=== PATIENT | female | born 1960 | race African-American/Black ===

== ENCOUNTER 2022-03-15 20:31 | Inpatient (IN) | payer MEDICARE, MEDICAID ==
[~2022-03-15] VITALS: Ht 165.1 cm; Wt 58.7 kg
[2022-03-16 00:20] LABS: BASOPHILS % 1.3 % (0.0-2.0); EOSINOPHILS % 2.3 % (0.0-5.0); LYMPHOCYTES % 22.8 % (20.0-50.0); MEAN CORPUSCULAR HEMOGLOBIN 32.2 pg (28.0-32.0); MEAN CORPUSCULAR VOLUME 103.9 fL (81.0-99.0); MONOCYTES % 7.8 % (2.0-8.0); NEUTROPHILS % 65.8 % (40.0-76.0); PLATELET 390 x1000/uL (130-400); RED BLOOD CELL COUNT 1.93 mill/uL (4.2-5.4); RED CELL DISTRIBUTION WIDTH 17.9 % (11.6-14.6)
[2022-03-16 00:22] LABS: HEMATOCRIT. 20.1 % (36.0-48.0); HEMOGLOBIN. 6.2 g/dL (12.0-16.0)
[2022-03-16 00:33] LABS: CHLORIDE 105 mEq/L (98-107)
[2022-03-16] MEDS ORDERED: IRON SUCROSE COMPLEX 100 MG/5 ML ML IV SCH (05:00)
[2022-03-16] MEDS ORDERED: SODIUM CHLORIDE 0.9% 500 ML IV SCH (05:00)
[2022-03-16] MEDS ORDERED: EPOETIN ALFA-EPBX 10,000 UNIT/ML VIAL SUBCUT SCH ×2 (05:00→21:00)
[2022-03-16] MEDS ORDERED: SODIUM CHLORIDE 0.9% 500 ML IV PRN (06:00)
[2022-03-16 06:11] LABS: PHOSPHORUS 5.4 mg/dL (2.5-4.9)
[2022-03-16 06:34] LABS: HEPATITIS B SURFACE ANTIGEN NEGATIVE
[2022-03-16] MEDS ORDERED: MORPHINE SULFATE 2 MG/ML CPJ (NOT FOR IM USE) IV PRN (08:45)
[2022-03-16] MEDS ORDERED: DOCUSATE SODIUM 100MG CAPSULE PO PRN (08:45)
[2022-03-16] MEDS ORDERED: IPRATROPIUM/ALBUTEROL 0.5-3(2.5)MG/3ML NEB NEB PRN (08:45)
[2022-03-16] MEDS ORDERED: HYDROCODONE/ACETAMINOPHEN 5/325MG TABLET PO PRN (08:45)
[2022-03-16] MEDS ORDERED: ACETAMINOPHEN 325MG TABLET PO PRN (08:45)
[2022-03-16] MEDS ORDERED: NA PHOS,M-B/NA PHOS,DI-BA ENEMA 118ML PR PRN (08:45)
[2022-03-16] MEDS ORDERED: MAGNESIUM/ALUMINUM HYDROXIDE/SIMETHICONE 30ML UDC PO PRN (08:45)
[2022-03-16] MEDS ORDERED: CLONIDINE 0.1MG TABLET PO PRN (08:45)
[2022-03-16] MEDS ORDERED: ONDANSETRON HCL 4MG/2ML INJ IV PRN (08:45)
[2022-03-16] MEDS ORDERED: GUAIFENESIN 200MG/10ML SUGAR FREE UDC PO PRN (08:45)
[2022-03-16] MEDS ORDERED: DIPHENHYDRAMINE 50MG/ML VIAL IV PRN (08:45)
[2022-03-16] MEDS ORDERED: NALOXONE HCL 0.4MG/ML VIAL IV PRN (09:00)
[2022-03-16] MEDS: CALCIUM ACETATE 667MG CAPSULE PO SCH ×2 (09:50→15:03)
[2022-03-16 11:35] VITALS: BP 107/74
[2022-03-16 12:58] LABS: HEMATOCRIT 22.8 % (36.0-48.0); HEMOGLOBIN 7.4 g/dL (12.0-16.0); MEAN CORPUSCULAR HEMOGLOBIN 32.3 pg (28.0-32.0); MEAN CORPUSCULAR VOLUME 99.9 fL (81.0-99.0); PLATELET 348 x1000/uL (130-400); RED BLOOD CELL COUNT 2.29 mill/uL (4.2-5.4); RED CELL DISTRIBUTION WIDTH 17.7 % (11.6-14.6)
[2022-03-16] MEDS ORDERED: LISI40TA13 PO (15:18)
[2022-03-16] MEDS ORDERED: CALC667C MT (15:18)
[2022-03-17] MEDS ORDERED: EPOETIN ALFA-EPBX 10,000 UNIT/ML VIAL SUBCUT SCH (21:00)
== END 2022-03-16 15:40 | disposition left against medical advice (07) | DRG 682 ==
LOC: ER 20:31 → EDBEDREQSVC 03-16 10:03 → ENRESERV 03-16 10:05 → 7WST 03-16 11:38
PROVIDERS: ADMIT Internal Medicine; ATTEND Internal Medicine
PROC: 5A1D70Z Performance of Urinary Filtration, Intermittent, Less than 6 Hours Per Day (ICD-10-PCS; principal; 2022-03-16)
PROC: 30233N1 Transfusion of Nonautologous Red Blood Cells into Peripheral Vein, Percutaneous Approach (ICD-10-PCS; 2022-03-16)
DX: I12.0 Hypertensive chronic kidney disease with stage 5 chronic kidney disease or end stage renal disease (principal); E43 Unspecified severe protein-calorie malnutrition; N18.6 End stage renal disease; D63.1 Anemia in chronic kidney disease; E83.51 Hypocalcemia; E83.39 Other disorders of phosphorus metabolism; Z68.21 Body mass index [BMI] 21.0-21.9, adult; Z99.2 Dependence on renal dialysis
CPT/HCPCS: 36415; 80053; 83540; 83550; 84100; 84484; 85025; 85027; 86705; 86709; 86803; 86850; 86900; 86920; 87340; 93005; 99291; P9016

== ENCOUNTER 2024-05-11 21:02 | Inpatient (IN) | payer OTHER, MEDICAID, MEDICARE ==
[~2024-05-11] VITALS: Ht 167.6 cm; Wt 50.4 kg
[~2024-05-11 21:02] MED LIST: CALC667C MT; LISI40TA13 PO
[2024-05-11 22:26] LABS: BASOPHILS % 0.5 % (0.0-2.0); DIFFERENTIAL COMMENT 0; HEMATOCRIT. 37.1 % (36.0-48.0); HEMOGLOBIN. 11.8 g/dL (12.0-16.0); LYMPHOCYTES % 17.8 % (20.0-50.0); MEAN CORPUSCULAR HEMOGLOBIN 32.7 pg (28.0-32.0); MEAN CORPUSCULAR HGB CONC 31.8 g/dL (31.0-37.0); MEAN CORPUSCULAR VOLUME 102.9 fL (81.0-99.0); MEAN PLATELET VOLUME 8.5 fl (7.4-10.4); MONOCYTES % 5.9 % (2.0-8.0); NEUTROPHILS % 67.8 % (40.0-76.0); PLATELET 189 x1000/uL (130-400); RED CELL DISTRIBUTION WIDTH 16.5 % (11.6-14.6); WHITE BLOOD COUNT 7.5 x1000/uL (4.5-11.0)
[2024-05-11 22:32] LABS: CHLORIDE 109 mEq/L (98-107); POTASSIUM 5.6 mEq/L (3.5-5.1); SODIUM 140 mEq/L (136-145)
[2024-05-11] MEDS: NITROGLYCERIN OINT 1GM/INCH UDPKT TD ONE (22:32)
[2024-05-11 22:33] LABS: CALCIUM 7.9 mg/dL (8.7-10.4); CARBON DIOXIDE 13 mEq/L (21-32)
[2024-05-11 22:37] LABS: INR 1.1; PROTHROMBIN TIME 12.5 sec (9.6-11.0)
[2024-05-11 22:38] LABS: GLUCOSE 84 mg/dL (70-105)
[2024-05-11 22:46] LABS: UREA NITROGEN BLOOD 110 mg/dL (9-23)
[2024-05-11 22:47] LABS: CREATININE 8.1 mg/dL (0.6-1.0); TROPONIN I HIGH SENSITIVITY 61 ng/L (3.0-34)
[2024-05-11] MEDS: ALBUTEROL (0.083%) 2.5MG/3ML NEB HHN NR (23:06)
[2024-05-11 23:07] VITALS: PULSE 81; RESP 15; O2SAT 99
[2024-05-11] MEDS: DEXTROSE 50% WATER 50ML SYRINGE IV NR (23:10)
[2024-05-11] MEDS: INSULIN REGULAR (HUMULIN R) 1000UNITS/10ML VIAL IV NR (23:11)
[2024-05-12] VITALS (11 sets, daily range): BP systolic 141–170; BP diastolic 56–94; PULSE 75–93; RESP 16–20; TEMP 36.28068–37.11408; O2SAT 92–100
[2024-05-12] MEDS ORDERED: CLONIDINE 0.1MG TABLET PO PRN (03:45)
[2024-05-12] MEDS: DEXTROSE 50% WATER 50ML SYRINGE IV PRN (03:54)
[2024-05-12] MEDS: BLOOD SUGAR DIAGNOSTIC STRIP TEST SCH (07:40)
[2024-05-12] MEDS: INSULIN LISPRO 100 UNITS/ML SUBCUT SCH (08:10)
[2024-05-12] MEDS: HEPARIN 5000 UNITS/ML VIAL SUBCUT SCH (08:54)
[2024-05-12] MEDS: CALCIUM ACETATE 667MG CAPSULE PO SCH (08:54)
[2024-05-12] MEDS: PANTOPRAZOLE 40MG DR TABLET PO SCH (08:54)
[2024-05-12] MEDS: CLONIDINE 0.2MG TABLET PO SCH (09:00)
[2024-05-12 10:12] LABS: BASOPHILS % 0.9 % (0.0-2.0); DIFFERENTIAL COMMENT 0; EOSINOPHILS % 0.4 % (0.0-5.0); HEMATOCRIT. 36.8 % (36.0-48.0); HEMOGLOBIN. 11.2 g/dL (12.0-16.0); LYMPHOCYTES % 9.3 % (20.0-50.0); MEAN CORPUSCULAR HEMOGLOBIN 31.5 pg (28.0-32.0); MEAN CORPUSCULAR HGB CONC 30.4 g/dL (31.0-37.0); MEAN CORPUSCULAR VOLUME 103.8 fL (81.0-99.0); MEAN PLATELET VOLUME 8.3 fl (7.4-10.4); MONOCYTES % 4.6 % (2.0-8.0); NEUTROPHILS % 84.8 % (40.0-76.0); PLATELET 188 x1000/uL (130-400); RED BLOOD CELL COUNT 3.55 mill/uL (4.2-5.4); RED CELL DISTRIBUTION WIDTH 16.2 % (11.6-14.6); WHITE BLOOD COUNT 9.1 x1000/uL (4.5-11.0)
[2024-05-12 10:20] LABS: POTASSIUM 5.1 mEq/L (3.5-5.1)
[2024-05-12 10:21] LABS: CALCIUM 7.5 mg/dL (8.7-10.4)
[2024-05-12 13:25] LABS: HEPATITIS B SURFACE ANTIGEN NEGATIVE (Negative)
[2024-05-12 13:46] LABS: HEPATITIS A AB IGM NEGATIVE (Negative)
[2024-05-12 13:47] LABS: HEPATITIS B CORE AB IGM NEGATIVE (Negative); HEPATITIS C AB REACTIVE (Pos) (Negative)
[2024-05-12] MEDS: METOCLOPRAMIDE HCL 5MG TABLET PO SCH (18:09)
[2024-05-12] MEDS: ONDANSETRON HCL 4MG/2ML INJ IV PRN (18:09)
[2024-05-13] VITALS (9 sets, daily range): BP systolic 97–184; BP diastolic 48–91; PULSE 64–89; RESP 16–19; TEMP 36.28068–36.50292; O2SAT 90–100
[2024-05-13 06:55] LABS: POTASSIUM 4.3 mEq/L (3.5-5.1)
[2024-05-13 06:56] LABS: CALCIUM 8.4 mg/dL (8.7-10.4)
[2024-05-13 07:02] LABS: BASOPHILS % 0.9 % (0.0-2.0); DIFFERENTIAL COMMENT 0; EOSINOPHILS % 3.4 % (0.0-5.0); HEMATOCRIT. 36.6 % (36.0-48.0); HEMOGLOBIN. 11.4 g/dL (12.0-16.0); LYMPHOCYTES % 16.1 % (20.0-50.0); MEAN CORPUSCULAR HEMOGLOBIN 31.4 pg (28.0-32.0); MEAN CORPUSCULAR HGB CONC 31.2 g/dL (31.0-37.0); MEAN CORPUSCULAR VOLUME 100.7 fL (81.0-99.0); MEAN PLATELET VOLUME 8.6 fl (7.4-10.4); MONOCYTES % 7.9 % (2.0-8.0); NEUTROPHILS % 71.7 % (40.0-76.0); PLATELET 188 x1000/uL (130-400); RED BLOOD CELL COUNT 3.64 mill/uL (4.2-5.4); RED CELL DISTRIBUTION WIDTH 16.1 % (11.6-14.6); WHITE BLOOD COUNT 6.1 x1000/uL (4.5-11.0)
[2024-05-13 07:33] LABS: CREATININE 5.1 mg/dL (0.6-1.0)
== END 2024-05-13 19:18 | disposition home or self-care (01) | DRG 640 ==
LOC: ER 21:02 → EDBEDREQ 21:46 → 7WST 05-12 00:14 → EDBEDREQ 05-12 00:52 → EDBEDREQTM 05-12 00:52 → EDBEDREQDT 05-12 00:52 → 7WST 05-12 22:30
PROVIDERS: ADMIT Internal Medicine; ATTEND Internal Medicine
PROC: 5A1D70Z Performance of Urinary Filtration, Intermittent, Less than 6 Hours Per Day (ICD-10-PCS; principal; 2024-05-12)
DX: E87.70 Fluid overload, unspecified (principal); N18.6 End stage renal disease; I12.0 Hypertensive chronic kidney disease with stage 5 chronic kidney disease or end stage renal disease; E11.22 Type 2 diabetes mellitus with diabetic chronic kidney disease; E87.20 Acidosis, unspecified; E78.5 Hyperlipidemia, unspecified; E11.649 Type 2 diabetes mellitus with hypoglycemia without coma; E87.5 Hyperkalemia; D63.8 Anemia in other chronic diseases classified elsewhere; F17.200 Nicotine dependence, unspecified, uncomplicated; Z79.899 Other long term (current) drug therapy; Z99.2 Dependence on renal dialysis; Z91.158 Patient's noncompliance with renal dialysis for other reason
CPT/HCPCS: 36415; 71045; 80048; 82533; 82962; 83036; 84484; 85025; 86705; 86709; 87340; 90935; 94640; 99291; J1644; J1815; J2405; J8597

== ENCOUNTER 2024-10-17 13:49 | Inpatient (IN) | payer OTHER, MEDICAID, MEDICARE ==
[~2024-10-17] VITALS: Ht 167.6 cm; Wt 50.8 kg
[2024-10-17 14:00] VITALS: PULSE 90; RESP 30; O2SAT 99
[2024-10-17] MEDS: DEXTROSE 50% WATER 50ML SYRINGE IV ONE ×2 (14:15→14:40)
[2024-10-17] MEDS ORDERED: MIDAZOLAM HCL 100 MG in DEXT 5% WATER 80 ML IV ONE (14:15)
[2024-10-17] MEDS ORDERED: FENTANYL 2500MCG/250ML PMX 250 ML IV ONE (14:15)
[2024-10-17] MEDS: MIDAZOLAM HCL 2 MG/2 ML VIAL IV ONE (14:40)
[2024-10-17 14:55] LABS: CHLORIDE 108 mEq/L (98-107); MEAN CORPUSCULAR HEMOGLOBIN 33.1 pg (28.0-32.0); MEAN CORPUSCULAR VOLUME 110.1 fL (81.0-99.0); MEAN PLATELET VOLUME 8.7 fl (7.4-10.4); PLATELET 244 x1000/uL (130-400); POTASSIUM 5.3 mEq/L (3.5-5.1); RED BLOOD CELL COUNT 2.72 mill/uL (4.2-5.4); RED CELL DISTRIBUTION WIDTH 17.6 % (11.6-14.6); SODIUM 140 mEq/L (136-145); WHITE BLOOD COUNT 13.5 x1000/uL (4.5-11.0)
[2024-10-17 14:56] LABS: CALCIUM 7.2 mg/dL (8.7-10.4); CARBON DIOXIDE 21 mEq/L (21-32); DIFFERENTIAL COMMENT 1
[2024-10-17] MEDS: PIPERACILLIN/TAZO 3.375G/50ML 50 ML IV ONE (14:58)
[2024-10-17] MEDS: VANCOMYCIN 1G PREMIX 200 ML IV ONE (14:58)
[2024-10-17] MEDS: MIDAZOLAM 100MG/100ML PMX 100 ML IV PRN (15:00)
[2024-10-17 15:01] LABS: GLUCOSE 94 mg/dL (70-105)
[2024-10-17 15:02] LABS: UREA NITROGEN BLOOD 83 mg/dL (9-23)
[2024-10-17 15:03] LABS: ALANINE AMINOTRANSFERASE 67 IU/L (10-49); ALBUMIN 3.5 g/dL (3.2-4.8); ASPARTATE AMINOTRANSFERASE 175 IU/L (<34)
[2024-10-17 15:04] LABS: BILIRUBIN TOTAL < 0.2 mg/dL (0.1-1.0); PROTEIN TOTAL 6.3 g/dL (6.0-8.3)
[2024-10-17] MEDS ORDERED: SODIUM POLYSTYRENE SULFONATE 15 G/60 ML BOT NG ONE (15:15)
[2024-10-17 15:16] LABS: BILIRUBIN DIRECT < 0.1 mg/dL (<=3.0); ETHANOL BLOOD < 10 mg/dL (<10)
[2024-10-17 15:33] LABS: CREATININE 5.9 mg/dL (0.6-1.0); TROPONIN I HIGH SENSITIVITY 63 ng/L (3.0-34)
[2024-10-17 15:47] LABS: ANISOCYTOSIS 1+; PLATELET ESTIMATE NORMAL; PROTHROMBIN TIME 10.9 sec (9.6-11.0)
[2024-10-17 16:07] VITALS: PULSE 74; RESP 19; O2SAT 99
[2024-10-17] MEDS: IPRATROPIUM/ALBUTEROL 0.5-3(2.5)MG/3ML NEB HHN ONE (16:07)
[2024-10-17] MEDS: ALBUTEROL (0.083%) 2.5MG/3ML NEB HHN ONE (16:08)
[2024-10-17] MEDS: FENTANYL CITRATE/PF 1,000 MCG in SODIUM CHLORIDE 0.9% 80 ML IV PRN (17:15)
[2024-10-17 17:47] LABS: BG BASE EXCESS -8.4 mmol/L (-2.0-3.0); BG DEOXYHEMOGLOBIN 0.3 % (0.0-5.0); BG FRACTION INSPIRED OXYGEN 100; BG METHEMOGLOBIN 0.3 % (0.5-1.5); BG OXYGEN SATURATION 99.7 % (94.0-98.0); BG OXYHEMOGLOBIN 98.4 % (94.0-98.0); BG PCO2 40.6 mmHg (32.0-45.0); BG PH 7.264 (7.350-7.450); BG PO2 439.4 mmHg (83.0-108.0); BG SAMPLE SITE RIGHT RADIAL; BG TOTAL HEMOGLOBIN 9.4 g/dL (12.0-16.0); BG VENT MODE VENT - AC
[2024-10-17 17:59] VITALS: PULSE 64; RESP 16; O2SAT 100
[2024-10-17] MEDS ORDERED: METHYLPREDNISOLONE SOD SUCC 125MG/2ML (ACT-O-VIAL) IV ONE (18:15)
[2024-10-17 20:51] LABS: HEPATITIS B SURFACE ANTIGEN NEGATIVE (Negative)
[2024-10-17 21:12] LABS: HEPATITIS A AB IGM NEGATIVE (Negative)
[2024-10-17 21:13] LABS: HEPATITIS B CORE AB IGM NEGATIVE (Negative)
[2024-10-17 21:19] VITALS: PULSE 56; RESP 14; O2SAT 100
[2024-10-17] MEDS: METHYLPREDNISOLONE SOD SUCC 125MG/2ML (ACT-O-VIAL) IV NR (21:35)
[2024-10-17] MEDS ORDERED: METHYLPREDNISOLONE SOD SUCC 40MG/ML (ACT-O-VIAL) IV SCH (22:00)
[2024-10-17] MEDS ORDERED: ONDANSETRON HCL 4MG/2ML INJ IV PRN (22:00)
[2024-10-17] MEDS ORDERED: PROPOFOL 10MG/ML 100ML 100 ML IV SCH (22:00)
[2024-10-17] MEDS ORDERED: HYDROCODONE/ACETAMINOPHEN 5/325MG TABLET PO PRN (22:00)
[2024-10-17 22:01] LABS: HEPATITIS C AB EQUIVICOL (Negative)
[2024-10-17] MEDS: SODIUM ZIRCONIUM CYCLOSILICATE 10GM/PACKET NG ONE (22:22)
[2024-10-17] MEDS: METHYLPREDNISOLONE SOD SUCC 40MG/ML (ACT-O-VIAL) IV SCH (22:45)
[2024-10-17] MEDS: IPRATROPIUM/ALBUTEROL 0.5-3(2.5)MG/3ML NEB NEB SCH (22:46)
[2024-10-17 22:47] VITALS: PULSE 56; RESP 15; O2SAT 100
[2024-10-17] MEDS: DEXTROSE 50% WATER 50ML SYRINGE IV PRN (23:40)
[2024-10-17] MEDS: DEXT 10% WATER 1,000 ML IV SCH (23:52)
[2024-10-17] MEDS: BLOOD SUGAR DIAGNOSTIC STRIP TEST SCH (23:58)
[2024-10-18] VITALS (12 sets, daily range): BP systolic 99–111; BP diastolic 45–66; PULSE 52–106; RESP 14–19; TEMP 35.8362; O2SAT 100
[2024-10-18 06:04] LABS: HEMATOCRIT. 34.1 % (36.0-48.0); HEMOGLOBIN. 10.6 g/dL (12.0-16.0); MEAN CORPUSCULAR HEMOGLOBIN 33.2 pg (28.0-32.0); MEAN CORPUSCULAR HGB CONC 31.2 g/dL (31.0-37.0); MEAN CORPUSCULAR VOLUME 106.4 fL (81.0-99.0); MEAN PLATELET VOLUME 7.9 fl (7.4-10.4); PLATELET 215 x1000/uL (130-400); RED CELL DISTRIBUTION WIDTH 17.7 % (11.6-14.6); WHITE BLOOD COUNT 12.9 x1000/uL (4.5-11.0)
[2024-10-18 06:08] LABS: DIFFERENTIAL COMMENT 1
[2024-10-18 06:14] LABS: POTASSIUM 4.7 mEq/L (3.5-5.1)
[2024-10-18 06:15] LABS: CALCIUM 6.8 mg/dL (8.7-10.4)
[2024-10-18 06:39] LABS: CREATININE 5.8 mg/dL (0.6-1.0)
[2024-10-18] MEDS ORDERED: PANTOPRAZOLE SODIUM 40 MG/VIAL IV SCH (09:00)
[2024-10-18] MEDS: PANTOPRAZOLE SODIUM 40 MG/VIAL IV SCH (09:26)
[2024-10-18] MEDS: PIPERACILLIN/TAZO 3.375G/50ML 50 ML IV SCH (09:27)
[2024-10-18] MEDS ORDERED: NALOXONE HCL 0.4MG/ML VIAL IV PRN (09:30)
[2024-10-18 12:25] LABS: HEMATOCRIT. 32.8 % (36.0-48.0); MEAN CORPUSCULAR HEMOGLOBIN 32.6 pg (28.0-32.0); MEAN CORPUSCULAR HGB CONC 30.5 g/dL (31.0-37.0); MEAN CORPUSCULAR VOLUME 106.7 fL (81.0-99.0); MEAN PLATELET VOLUME 8.9 fl (7.4-10.4); PLATELET 236 x1000/uL (130-400); RED BLOOD CELL COUNT 3.08 mill/uL (4.2-5.4); RED CELL DISTRIBUTION WIDTH 17.3 % (11.6-14.6); WHITE BLOOD COUNT 13.2 x1000/uL (4.5-11.0)
[2024-10-18 12:38] LABS: POTASSIUM 4.4 mEq/L (3.5-5.1)
[2024-10-18 12:40] LABS: DIFFERENTIAL COMMENT 1
[2024-10-18 12:44] LABS: CREATININE 4.9 mg/dL (0.6-1.0)
[2024-10-18] MEDS: NOREPINEPHRINE 8MG/250ML PMX 250 ML IV PRN (13:42)
[2024-10-18 14:15] LABS: BG BASE EXCESS -3.6 mmol/L (-2.0-3.0); BG CARBOXYHEMOGLOBIN 1.9 % (0.5-1.5); BG DEOXYHEMOGLOBIN 3.3 % (0.0-5.0); BG FRACTION INSPIRED OXYGEN 50; BG HCO3 ACT 22.7 mmol/L (21.0-28.0); BG METHEMOGLOBIN 0.2 % (0.5-1.5); BG OXYGEN SATURATION 96.6 % (94.0-98.0); BG OXYHEMOGLOBIN 94.6 % (94.0-98.0); BG PCO2 46.7 mmHg (32.0-45.0); BG PH 7.305 (7.350-7.450); BG PO2 98.7 mmHg (83.0-108.0); BG SAMPLE SITE RIGHT RADIAL; BG VENT MODE VENT - AC
[2024-10-18 16:18] LABS: ANISOCYTOSIS 1+; PLATELET ESTIMATE NORMAL
[2024-10-18] MEDS: DEXT 5%/0.9% NACL 1,000 ML IV SCH (23:46)
[2024-10-18 23:53] LABS: CLARITY URINE CLEAR (CLEAR); COLOR URINE YELLOW (YELLOW); GLUCOSE URINE NEGATIVE (NEGATIVE); KETONES URINE NEGATIVE (NEGATIVE); LEUKOCYTE ESTERASE URINE 1+ (NEGATIVE); NITRITE URINE NEGATIVE (NEGATIVE); OCCULT BLOOD URINE 1+ (NEGATIVE); PH URINE 5.5 (4.5-8.0); PROTEIN URINE 3+ (NEGATIVE); SPECIFIC GRAVITY URINE 1.015 (1.005-1.030); UROBILINOGEN URINE 0.2 E.U./dL (0.2-1.0)
[2024-10-19] VITALS (81 sets, daily range): BP systolic 51–180; BP diastolic 20–142; PULSE 65–84; RESP 12–17; TEMP 36.1–36.8; O2SAT 67–100
[2024-10-19 00:05] LABS: *AMPHETAMINES SCREEN URINE NEGATIVE (NEGATIVE); *BARBITURATES SCREEN URINE NEGATIVE (NEGATIVE); *BENZODIAZEPINES SCREEN URINE PRESUMPTIVE POSITIVE (NEGATIVE)
[2024-10-19 00:06] LABS: *COCAINE SCREEN URINE NEGATIVE (NEGATIVE); CANNABINOID URINE SCREEN NEGATIVE (NEGATIVE); ECSTASY MDMA SCREEN URINE NEGATIVE (NEGATIVE); METHADONE URINE SCREEN NEGATIVE (NEGATIVE); OPIATES URINE SCREEN PRESUMPTIVE POSITIVE (NEGATIVE); PHENCYCLIDINE URINE SCREEN NEGATIVE (NEGATIVE)
[2024-10-19] MEDS: VANCOMYCIN 500MG PREMIX 100 ML IV SCH (00:10)
[2024-10-19 00:18] LABS: SQUAMOUS EPITHELIAL CELL URINE 2+ /lpf (RARE/1+)
[2024-10-19 00:19] LABS: WBC URINE 15-25 /hpf (0-2)
[2024-10-19 00:21] LABS: BACTERIA URINE TRACE
[2024-10-19] MEDS: HEPARIN 5000 UNITS/ML VIAL SUBCUT SCH (06:00)
[2024-10-19 10:58] LABS: HEMATOCRIT. 33.8 % (36.0-48.0); HEMOGLOBIN. 10.6 g/dL (12.0-16.0); MEAN CORPUSCULAR HEMOGLOBIN 33.1 pg (28.0-32.0); MEAN CORPUSCULAR HGB CONC 31.3 g/dL (31.0-37.0); MEAN CORPUSCULAR VOLUME 105.9 fL (81.0-99.0); MEAN PLATELET VOLUME 8.3 fl (7.4-10.4); PLATELET 207 x1000/uL (130-400); RED CELL DISTRIBUTION WIDTH 17.6 % (11.6-14.6); WHITE BLOOD COUNT 16.6 x1000/uL (4.5-11.0)
[2024-10-19 11:00] LABS: DIFFERENTIAL COMMENT 1
[2024-10-19 11:05] LABS: POTASSIUM 4.8 mEq/L (3.5-5.1)
[2024-10-19 11:07] LABS: CALCIUM 6.6 mg/dL (8.7-10.4)
[2024-10-19 11:23] LABS: CREATININE 5.7 mg/dL (0.6-1.0)
[2024-10-19 12:36] LABS: ANISOCYTOSIS 1+; PLATELET ESTIMATE NORMAL
[2024-10-19 16:15] LABS: PLATELET ESTIMATE NORMAL
[2024-10-19] MEDS: BLOOD SUGAR DIAGNOSTIC STRIP TEST SCH (21:41)
[2024-10-20] VITALS (85 sets, daily range): BP systolic 84–142; BP diastolic 59–94; PULSE 65–98; RESP 11–24; TEMP 36.00288–37; O2SAT 93–100
[2024-10-20 05:56] LABS: HEMATOCRIT. 35.2 % (36.0-48.0); HEMOGLOBIN. 10.6 g/dL (12.0-16.0); MEAN CORPUSCULAR HEMOGLOBIN 32.7 pg (28.0-32.0); MEAN CORPUSCULAR HGB CONC 30.2 g/dL (31.0-37.0); MEAN CORPUSCULAR VOLUME 108.1 fL (81.0-99.0); MEAN PLATELET VOLUME 8.7 fl (7.4-10.4); PLATELET 201 x1000/uL (130-400); RED BLOOD CELL COUNT 3.25 mill/uL (4.2-5.4); RED CELL DISTRIBUTION WIDTH 17.1 % (11.6-14.6); WHITE BLOOD COUNT 11.3 x1000/uL (4.5-11.0)
[2024-10-20 06:06] LABS: CALCIUM 6.5 mg/dL (8.7-10.4)
[2024-10-20 06:13] LABS: DIFFERENTIAL COMMENT 1
[2024-10-20 10:36] LABS: BG BASE EXCESS -12.4 mmol/L (-2.0-3.0); BG CARBOXYHEMOGLOBIN 0.9 % (0.5-1.5); BG FRACTION INSPIRED OXYGEN 50; BG HCO3 ACT 14.3 mmol/L (21.0-28.0); BG METHEMOGLOBIN 0.3 % (0.5-1.5); BG OXYHEMOGLOBIN 95.8 % (94.0-98.0); BG PCO2 35.2 mmHg (32.0-45.0); BG PH 7.226 (7.350-7.450); BG PO2 107.9 mmHg (83.0-108.0); BG SAMPLE SITE LEFT RADIAL; BG TOTAL HEMOGLOBIN 11.8 g/dL (12.0-16.0); BG VENT MODE VENT - AC
[2024-10-20] MEDS ORDERED: SODIUM BICARBONATE 8.4% 50MEQ/50ML SYR IV NR (15:15)
[2024-10-20] MEDS: SODIUM BICARBONATE 8.4% 50MEQ/50ML SYR IV NR (16:20)
[2024-10-20] MEDS ORDERED: DEXTROSE 50% WATER 50ML SYRINGE IV PRN (16:30)
[2024-10-20 16:50] LABS: ANISOCYTOSIS 1+; PLATELET ESTIMATE NORMAL
[2024-10-20] MEDS: ALTEPLASE 2MG/VIAL ITC ONE (17:00)
[2024-10-20] MEDS: INSULIN LISPRO 100 UNITS/ML SUBCUT SCH (17:50)
[2024-10-20] MEDS: METHYLPREDNISOLONE SOD SUCC 40MG/ML (ACT-O-VIAL) IV SCH (18:00)
[2024-10-21] VITALS (78 sets, daily range): BP systolic 100–169; BP diastolic 61–125; PULSE 63–102; RESP 11–28; TEMP 36.1–36.7; O2SAT 93–100
[2024-10-21] MEDS: INSULIN LISPRO 100 UNITS/ML SUBCUT SCH (06:02)
[2024-10-21] MEDS: BLOOD SUGAR DIAGNOSTIC STRIP TEST SCH (06:02)
[2024-10-21 06:41] LABS: HEMATOCRIT. 34.2 % (36.0-48.0); HEMOGLOBIN. 10.6 g/dL (12.0-16.0); MEAN CORPUSCULAR HEMOGLOBIN 32.5 pg (28.0-32.0); MEAN PLATELET VOLUME 8.6 fl (7.4-10.4); PLATELET 199 x1000/uL (130-400); RED BLOOD CELL COUNT 3.25 mill/uL (4.2-5.4); RED CELL DISTRIBUTION WIDTH 17.9 % (11.6-14.6); WHITE BLOOD COUNT 23.1 x1000/uL (4.5-11.0)
[2024-10-21 06:48] LABS: CALCIUM 6.5 mg/dL (8.7-10.4); POTASSIUM 5.5 mEq/L (3.5-5.1)
[2024-10-21 06:59] LABS: CREATININE 6.2 mg/dL (0.6-1.0)
[2024-10-21 07:49] LABS: DIFFERENTIAL COMMENT 1
[2024-10-21 09:07] LABS: BG BASE EXCESS -8.4 mmol/L (-2.0-3.0); BG CARBOXYHEMOGLOBIN 1.3 % (0.5-1.5); BG DEOXYHEMOGLOBIN 6.3 % (0.0-5.0); BG FRACTION INSPIRED OXYGEN 40; BG HCO3 ACT 17.5 mmol/L (21.0-28.0); BG METHEMOGLOBIN 0.3 % (0.5-1.5); BG OXYGEN SATURATION 93.6 % (94.0-98.0); BG OXYHEMOGLOBIN 92.1 % (94.0-98.0); BG PCO2 37.1 mmHg (32.0-45.0); BG PH 7.291 (7.350-7.450); BG PO2 80.6 mmHg (83.0-108.0); BG SAMPLE SITE LEFT RADIAL; BG TOTAL HEMOGLOBIN 10.6 g/dL (12.0-16.0); BG VENT MODE VENT - CPAP
[2024-10-21] MEDS: SODIUM ZIRCONIUM CYCLOSILICATE 10GM/PACKET PO NR (09:51)
[2024-10-21 22:25] LABS: BG BASE EXCESS -3.8 mmol/L (-2.0-3.0); BG CARBOXYHEMOGLOBIN 0.9 % (0.5-1.5); BG DEOXYHEMOGLOBIN 4.4 % (0.0-5.0); BG FRACTION INSPIRED OXYGEN 40; BG METHEMOGLOBIN 0.3 % (0.5-1.5); BG OXYGEN SATURATION 95.5 % (94.0-98.0); BG OXYHEMOGLOBIN 94.4 % (94.0-98.0); BG PCO2 32.2 mmHg (32.0-45.0); BG PH 7.411 (7.350-7.450); BG TOTAL HEMOGLOBIN 11.2 g/dL (12.0-16.0); BG VENT MODE COOL AEROSOL
[2024-10-21 22:49] LABS: CALCIUM 6.6 mg/dL (8.7-10.4); POTASSIUM 4.9 mEq/L (3.5-5.1)
[2024-10-21 22:54] LABS: CREATININE 4.9 mg/dL (0.6-1.0)
[2024-10-21] MEDS: ZOLPIDEM TARTRATE 5MG TABLET PO PRN (23:13)
[2024-10-22] VITALS (90 sets, daily range): BP systolic 91–173; BP diastolic 63–146; PULSE 67–84; RESP 10–22; TEMP 34.4–36.4; O2SAT 89–100
[2024-10-22] MEDS: CLONIDINE 0.1MG TABLET PO PRN (01:18)
[2024-10-22] MEDS ORDERED: INSNOV SUBCUT (03:45)
[2024-10-22] MEDS ORDERED: CALC-26 (03:45)
[2024-10-22] MEDS ORDERED: METO-385 (03:45)
[2024-10-22] MEDS ORDERED: AMLO10TA80 (03:45)
[2024-10-22] MEDS ORDERED: FURO40TA5 (03:45)
[2024-10-22] MEDS ORDERED: SACU1TAB (03:45)
[2024-10-22 07:03] LABS: HEMATOCRIT. 35.2 % (36.0-48.0); HEMOGLOBIN. 10.4 g/dL (12.0-16.0); MEAN CORPUSCULAR HEMOGLOBIN 32.2 pg (28.0-32.0); MEAN CORPUSCULAR HGB CONC 29.5 g/dL (31.0-37.0); MEAN CORPUSCULAR VOLUME 109.2 fL (81.0-99.0); MEAN PLATELET VOLUME 9.3 fl (7.4-10.4); PLATELET 137 x1000/uL (130-400); RED BLOOD CELL COUNT 3.22 mill/uL (4.2-5.4); RED CELL DISTRIBUTION WIDTH 18.1 % (11.6-14.6); WHITE BLOOD COUNT 14.6 x1000/uL (4.5-11.0)
[2024-10-22 07:25] LABS: POTASSIUM 4.8 mEq/L (3.5-5.1)
[2024-10-22 07:27] LABS: CALCIUM 6.5 mg/dL (8.7-10.4)
[2024-10-22 07:31] LABS: CREATININE 4.9 mg/dL (0.6-1.0)
[2024-10-22 08:12] LABS: DIFFERENTIAL COMMENT 1
[2024-10-22 14:52] LABS: ANISOCYTOSIS 1+; PLATELET ESTIMATE NORMAL
[2024-10-22] MEDS: IOHEXOL-350 100 ML BOTTLE ONE (15:00)
[2024-10-22 18:24] LABS: ANISOCYTOSIS 1+; PLATELET ESTIMATE NORMAL
[2024-10-23] VITALS (13 sets, daily range): BP systolic 140–172; BP diastolic 70–87; PULSE 67–99; RESP 13–20; TEMP 36.4–36.6696; O2SAT 96–100
[2024-10-23 07:15] LABS: POTASSIUM 5.2 mEq/L (3.5-5.1)
[2024-10-23 07:16] LABS: CALCIUM 6.6 mg/dL (8.7-10.4)
[2024-10-23 08:06] LABS: HEMATOCRIT. 28.6 % (36.0-48.0); HEMOGLOBIN. 9.1 g/dL (12.0-16.0); MEAN CORPUSCULAR HEMOGLOBIN 33.2 pg (28.0-32.0); MEAN CORPUSCULAR VOLUME 103.9 fL (81.0-99.0); PLATELET 127 x1000/uL (130-400); RED BLOOD CELL COUNT 2.75 mill/uL (4.2-5.4); WHITE BLOOD COUNT 10.8 x1000/uL (4.5-11.0)
[2024-10-23 08:27] LABS: CREATININE 5.2 mg/dL (0.6-1.0)
[2024-10-23 09:09] LABS: DIFFERENTIAL COMMENT 1
[2024-10-23 18:53] LABS: PLATELET ESTIMATE DECREASED
[2024-10-24] VITALS: BP 151/99; PULSE 83; RESP 16; TEMP 36.6; O2SAT 98
[2024-10-24 04:00] VITALS: BP 160/74; PULSE 82; RESP 20; TEMP 36.8; O2SAT 99
[2024-10-24 07:03] LABS: INR 1.1; PROTHROMBIN TIME 11.7 sec (9.6-11.0)
[2024-10-24 07:19] LABS: CARBON DIOXIDE 24 mEq/L (21-32); CHLORIDE 104 mEq/L (98-107); POTASSIUM 4.2 mEq/L (3.5-5.1); SODIUM 140 mEq/L (136-145)
[2024-10-24 07:21] LABS: CALCIUM 6.9 mg/dL (8.7-10.4)
[2024-10-24 07:25] LABS: CREATININE 4.5 mg/dL (0.6-1.0); GLUCOSE 228 mg/dL (70-105)
[2024-10-24 07:26] LABS: UREA NITROGEN BLOOD 73 mg/dL (9-23)
[2024-10-24 07:28] LABS: PHOSPHORUS 5.6 mg/dL (2.5-4.9)
[2024-10-24 08:00] VITALS: BP 170/73; PULSE 80; RESP 15; TEMP 36.8; O2SAT 100
[2024-10-24 08:21] LABS: HEMATOCRIT. 29.4 % (36.0-48.0); HEMOGLOBIN. 9.7 g/dL (12.0-16.0); MEAN CORPUSCULAR HGB CONC 33.1 g/dL (31.0-37.0); MEAN CORPUSCULAR VOLUME 102.9 fL (81.0-99.0); PLATELET 142 x1000/uL (130-400); RED BLOOD CELL COUNT 2.86 mill/uL (4.2-5.4); RED CELL DISTRIBUTION WIDTH 16.9 % (11.6-14.6); WHITE BLOOD COUNT 12.6 x1000/uL (4.5-11.0)
[2024-10-24 09:22] LABS: DIFFERENTIAL COMMENT 1
[2024-10-24 12:00] VITALS: BP 179/91; PULSE 80; RESP 16; TEMP 36.7; O2SAT 100
[2024-10-24 15:50] LABS: ANISOCYTOSIS 1+; PLATELET ESTIMATE DECREASED
[2024-10-24 16:00] VITALS: BP 182/110; PULSE 84; RESP 14; TEMP 36.7; O2SAT 100
[2024-10-24 20:00] VITALS: BP 147/66; PULSE 65; RESP 16; TEMP 36.4; O2SAT 100
[2024-10-25] VITALS (14 sets, daily range): BP systolic 142–167; BP diastolic 71–84; PULSE 70–100; RESP 14–16; TEMP 36.22512–36.8; O2SAT 98–100
[2024-10-25 07:16] LABS: HEMATOCRIT. 29.2 % (36.0-48.0); HEMOGLOBIN. 9.1 g/dL (12.0-16.0); MEAN CORPUSCULAR HEMOGLOBIN 32.6 pg (28.0-32.0); MEAN CORPUSCULAR VOLUME 104.9 fL (81.0-99.0); MEAN PLATELET VOLUME 8.7 fl (7.4-10.4); PLATELET 146 x1000/uL (130-400); RED BLOOD CELL COUNT 2.78 mill/uL (4.2-5.4); RED CELL DISTRIBUTION WIDTH 17.3 % (11.6-14.6); WHITE BLOOD COUNT 12.4 x1000/uL (4.5-11.0)
[2024-10-25 07:22] LABS: POTASSIUM 4.7 mEq/L (3.5-5.1)
[2024-10-25 07:23] LABS: CALCIUM 7.5 mg/dL (8.7-10.4)
[2024-10-25 07:30] LABS: CREATININE 5.1 mg/dL (0.6-1.0)
[2024-10-25 07:39] LABS: DIFFERENTIAL COMMENT 1
[2024-10-25] MEDS: ASPIRIN 81MG TABLET PO SCH (09:00)
[2024-10-25] MEDS ORDERED: LIDOCAINE HCL 1% 20ML VIAL ONE (12:43)
[2024-10-25] MEDS ORDERED: IODIXANOL 320MG/ML 100 ML BOTTLE IV ONE (12:43)
[2024-10-25] MEDS ORDERED: MIDAZOLAM HCL 2 MG/2 ML VIAL ONE (13:01)
[2024-10-25] MEDS ORDERED: FENTANYL CITRATE/PF 50MCG/ML 2ML VIAL ONE (13:01)
[2024-10-25] MEDS ORDERED: HEPARIN 1000 UNITS/ML 10ML ONE (13:01)
[2024-10-25] MEDS ORDERED: LABETALOL 5MG/ML 20ML VIAL IV ONE (14:08)
[2024-10-25] MEDS ORDERED: HYDRALAZINE 20MG/ML VIAL ONE (14:48)
[2024-10-25] MEDS ORDERED: PROTAMINE SULFATE 10MG/ML VIAL 25ML IV ONE (14:53)
[2024-10-25] MEDS: ASPIRIN 300MG SUPP PR NR ×2 (16:16→17:02)
[2024-10-25 21:04] LABS: PLATELET ESTIMATE NORMAL
[2024-10-25] MEDS: CLOPIDOGREL 75MG TABLET PO NR (23:01)
[2024-10-26 00:23] VITALS: BP 161/80; PULSE 82; RESP 20; TEMP 36.6; O2SAT 100
[2024-10-26] MEDS: TRAZODONE HCL 50MG TABLET PO SCH (00:54)
[2024-10-26 04:30] VITALS: BP 150/70; PULSE 82; RESP 20; TEMP 36.8; O2SAT 100
[2024-10-26 08:00] VITALS: BP 153/75; PULSE 85; RESP 14; TEMP 36.7; O2SAT 99
[2024-10-26] MEDS ORDERED: CLOPIDOGREL 75MG TABLET PO SCH (09:00)
[2024-10-26 12:00] VITALS: BP 163/82; PULSE 85; RESP 18; TEMP 36.6; O2SAT 96
[2024-10-26 16:00] VITALS: BP 157/78; PULSE 83; RESP 18; TEMP 36.8; O2SAT 100
[2024-10-26 20:00] VITALS: BP 159/84; PULSE 90; RESP 20; TEMP 36.8; O2SAT 100
[2024-10-26] MEDS: CLOPIDOGREL 75MG TABLET PO SCH (21:40)
[2024-10-27] VITALS (15 sets, daily range): BP systolic 118–169; BP diastolic 67–83; PULSE 66–80; RESP 16–19; TEMP 36.2–37.1; O2SAT 94–100
[2024-10-27] MEDS: LORAZEPAM 2MG/ML INJ IV PRN (01:46)
[2024-10-27] MEDS: BLOOD SUGAR DIAGNOSTIC STRIP TEST SCH (06:41)
[2024-10-27] MEDS: GLUCAGON,HUMAN RECOMBINANT 1MG/VIAL IM NR (19:35)
[2024-10-28] VITALS: BP 148/72; PULSE 84; RESP 18; TEMP 36.6; O2SAT 99
[2024-10-28 04:00] VITALS: BP 150/68; PULSE 79; RESP 18; TEMP 37.1; O2SAT 99
[2024-10-28 07:41] LABS: CALCIUM 7.3 mg/dL (8.7-10.4)
[2024-10-28 07:43] LABS: BASOPHILS % 0.3 % (0.0-2.0); DIFFERENTIAL COMMENT 0; EOSINOPHILS % 0.4 % (0.0-5.0); HEMATOCRIT. 25.8 % (36.0-48.0); HEMOGLOBIN. 8.2 g/dL (12.0-16.0); LYMPHOCYTES % 12.9 % (20.0-50.0); MEAN CORPUSCULAR HEMOGLOBIN 33.2 pg (28.0-32.0); MEAN CORPUSCULAR VOLUME 103.8 fL (81.0-99.0); MEAN PLATELET VOLUME 8.5 fl (7.4-10.4); MONOCYTES % 3.7 % (2.0-8.0); NEUTROPHILS % 82.7 % (40.0-76.0); PLATELET 135 x1000/uL (130-400); RED BLOOD CELL COUNT 2.48 mill/uL (4.2-5.4); RED CELL DISTRIBUTION WIDTH 16.6 % (11.6-14.6); WHITE BLOOD COUNT 8.5 x1000/uL (4.5-11.0)
[2024-10-28 07:46] LABS: CREATININE 4.4 mg/dL (0.6-1.0)
[2024-10-28 08:00] VITALS: BP 165/95; PULSE 74; RESP 20; TEMP 35.5; O2SAT 98
[2024-10-28 12:00] VITALS: BP 168/69; PULSE 82; RESP 20; TEMP 36.2; O2SAT 95
[2024-10-28] MEDS: ACETAMINOPHEN 325MG TABLET PO PRN (12:07)
[2024-10-28 16:00] VITALS: BP 164/90; PULSE 81; RESP 20; TEMP 36; O2SAT 96
[2024-10-28] MEDS ORDERED: DEXTROSE 50% WATER 50ML SYRINGE IV PRN (19:00)
[2024-10-28 20:00] VITALS: BP 169/78; PULSE 82; RESP 18; TEMP 36; O2SAT 100
[2024-10-28] MEDS: BLOOD SUGAR DIAGNOSTIC STRIP TEST SCH (20:55)
[2024-10-28] MEDS: INSULIN LISPRO 100 UNITS/ML SUBCUT SCH (21:04)
[2024-10-29] VITALS (14 sets, daily range): BP systolic 129–181; BP diastolic 73–92; PULSE 71–89; RESP 16–19; TEMP 35.4–36.6; O2SAT 95–99
[2024-10-29 08:10] LABS: BASOPHILS % 0.6 % (0.0-2.0); DIFFERENTIAL COMMENT 0; EOSINOPHILS % 0.9 % (0.0-5.0); HEMATOCRIT. 25.5 % (36.0-48.0); LYMPHOCYTES % 9.5 % (20.0-50.0); MEAN CORPUSCULAR HEMOGLOBIN 32.5 pg (28.0-32.0); MEAN CORPUSCULAR HGB CONC 31.3 g/dL (31.0-37.0); MEAN CORPUSCULAR VOLUME 103.8 fL (81.0-99.0); MEAN PLATELET VOLUME 8.6 fl (7.4-10.4); MONOCYTES % 4.1 % (2.0-8.0); NEUTROPHILS % 84.9 % (40.0-76.0); PLATELET 125 x1000/uL (130-400); RED BLOOD CELL COUNT 2.46 mill/uL (4.2-5.4)
[2024-10-29 08:29] LABS: POTASSIUM 5.2 mEq/L (3.5-5.1)
[2024-10-29 08:30] LABS: CALCIUM 6.7 mg/dL (8.7-10.4)
[2024-10-29] MEDS ORDERED: EPOETIN ALFA-EPBX 4,000 UNIT/ML VIAL SUBCUT SCH (21:00)
== END 2024-10-29 21:37 | DRG 853 ==
LOC: ER 13:49 → MICUSO 16:51 → EDBEDREQ 17:01 → CVICU 10-19 06:54 → 3WST 10-22 22:20 → 6EST 10-27 03:55
PROVIDERS: ADMIT Internal Medicine; ATTEND Internal Medicine
PROC: 5A1955Z Respiratory Ventilation, Greater than 96 Consecutive Hours (ICD-10-PCS; 2024-10-17)
PROC: 0BH17EZ Insertion of Endotracheal Airway into Trachea, Via Natural or Artificial Opening (ICD-10-PCS; 2024-10-17)
PROC: 5A1D70Z Performance of Urinary Filtration, Intermittent, Less than 6 Hours Per Day (ICD-10-PCS; 2024-10-18)
PROC: 5A1D70Z Performance of Urinary Filtration, Intermittent, Less than 6 Hours Per Day (ICD-10-PCS; 2024-10-20)
PROC: 5A1D70Z Performance of Urinary Filtration, Intermittent, Less than 6 Hours Per Day (ICD-10-PCS; 2024-10-21)
PROC: 5A1D70Z Performance of Urinary Filtration, Intermittent, Less than 6 Hours Per Day (ICD-10-PCS; 2024-10-23)
PROC: 047L3DZ Dilation of Left Femoral Artery with Intraluminal Device, Percutaneous Approach (ICD-10-PCS; principal; 2024-10-25)
PROC: 047N3Z1 Dilation of Left Popliteal Artery using Drug-Coated Balloon, Percutaneous Approach (ICD-10-PCS; 2024-10-25)
PROC: 04CL3ZZ Extirpation of Matter from Left Femoral Artery, Percutaneous Approach (ICD-10-PCS; 2024-10-25)
PROC: 04CN3ZZ Extirpation of Matter from Left Popliteal Artery, Percutaneous Approach (ICD-10-PCS; 2024-10-25)
PROC: B4101ZZ Fluoroscopy of Abdominal Aorta using Low Osmolar Contrast (ICD-10-PCS; 2024-10-25)
PROC: B41G1ZZ Fluoroscopy of Left Lower Extremity Arteries using Low Osmolar Contrast (ICD-10-PCS; 2024-10-25)
PROC: 5A1D70Z Performance of Urinary Filtration, Intermittent, Less than 6 Hours Per Day (ICD-10-PCS; 2024-10-25)
PROC: 5A1D70Z Performance of Urinary Filtration, Intermittent, Less than 6 Hours Per Day (ICD-10-PCS; 2024-10-27)
PROC: 5A1D70Z Performance of Urinary Filtration, Intermittent, Less than 6 Hours Per Day (ICD-10-PCS; 2024-10-29)
DX: A41.9 Sepsis, unspecified organism (principal); G92.8 Other toxic encephalopathy; J96.01 Acute respiratory failure with hypoxia; R65.21 Severe sepsis with septic shock; N18.6 End stage renal disease; J18.9 Pneumonia, unspecified organism; I21.A1 Myocardial infarction type 2; I13.2 Hypertensive heart and chronic kidney disease with heart failure and with stage 5 chronic kidney disease, or end stage renal disease; Z99.11 Dependence on respirator [ventilator] status; E87.20 Acidosis, unspecified; E11.52 Type 2 diabetes mellitus with diabetic peripheral angiopathy with gangrene; I70.262 Atherosclerosis of native arteries of extremities with gangrene, left leg; J44.0 Chronic obstructive pulmonary disease with (acute) lower respiratory infection; E87.1 Hypo-osmolality and hyponatremia; Z20.822 Contact with and (suspected) exposure to COVID-19; I50.9 Heart failure, unspecified; K80.20 Calculus of gallbladder without cholecystitis without obstruction; E11.22 Type 2 diabetes mellitus with diabetic chronic kidney disease; E11.649 Type 2 diabetes mellitus with hypoglycemia without coma; T73.0XXA Starvation, initial encounter; E87.5 Hyperkalemia; S90.31XA Contusion of right foot, initial encounter; D53.9 Nutritional anemia, unspecified; E78.5 Hyperlipidemia, unspecified; L89.150 Pressure ulcer of sacral region, unstageable; E83.39 Other disorders of phosphorus metabolism; E83.51 Hypocalcemia; Z99.2 Dependence on renal dialysis; Z79.02 Long term (current) use of antithrombotics/antiplatelets; Z79.82 Long term (current) use of aspirin; X58.XXXA Exposure to other specified factors, initial encounter; Y93.89 Activity, other specified; Y92.89 Other specified places as the place of occurrence of the external cause; Y99.8 Other external cause status
CPT/HCPCS: 31500; 36415; 36600; 37225; 71045; 71250; 74176; 75635; 75710; 76604; 76705; 80048; 80076; 80202; 80305; 80320; 81001; 82375; 82805; 82962; 83036; 83605; 83735; 83880; 84100; 84145; 84484; 85025; 85347; 86705; 86709; 86850; 86900; 87070; 87077; 87186; 87340; 87426; 87430; 87804; 90935; 92610; 93005; 93306; 93923; 93970; 94002; 94003; 94070; 94640; 94664; 97162; 97166; 99291; A4606; A6261; C1725; C1769; C1876; C1887; C1893; C1894; J0360; J0885; J1610; J1644; J1815; J2060; J2250; J2470; J2543; J2720; J2919; J2920; J2997; J3010; J3370; J3490; J7050; J7060; Q9967; C1714; G0480